=== PATIENT | male | born 1965 ===

== ENCOUNTER → 2019-02-03 | Outpatient (CLI) | payer SELFPAY ==
--- NOTE | 2019-02-03 10:49 | Diagnostic Imaging Report ---
EXAMINATION: Magnetic resonance imaging of the right shoulder without contrast. DATE: February 03, 2019. COMPARISON: None. HISTORY: 53-year-old male, right shoulder pain. TECHNIQUE: Magnetic Resonance Imaging sequences were performed of the shoulder without contrast. FINDINGS: ROTATOR CUFF, LIGAMENTS, TENDONS, AND MUSCLES: There is infraspinatus tendinopathy. The supraspinatus and teres minor tendons are intact. There is mild subscapularis tendinopathy. There is normal rotator cuff muscle bulk and signal. LONG HEAD OF BICEPS: The biceps labral attachment and long head of the biceps tendon is intact. The long head of the biceps tendon is normally positioned within the bicipital groove. GLENOHUMERAL JOINT: The humeral head is mildly posteriorly subluxed. There is a tear involving the posterior labrum most likely involving its entire length. There is extension of the labral tear to the inferior labrum. There is a multiloculated paralabral cyst adjacent to the inferior labrum measuring approximately 12 x 4 x 3 mm in size. This is best illustrated on axial PD fat saturation sequence image 21. There are also small paralabral cysts adjacent to the posterior inferior labrum measuring approximately 3 x 3 x 3 mm in size, on axial PD fat saturation sequence image 19 and adjacent to the mid posterior labrum measuring 2 x 3 mm in size on axial PD fat saturation sequence image 15. There are subchondral cysts along the posterior and inferior glenoid. There is near full-thickness cartilage loss of the posterior glenoid and adjacent humeral head cartilage thinning. There is no glenohumeral joint effusion. ACROMIOCLAVICULAR JOINT: The acromioclavicular joint is normally aligned. The coracoclavicular and coracoacromial ligaments are intact. There are moderate acromioclavicular degenerative changes with osteophytes extending approximately 4 mm below the expected joint margin. BONE: There is no os acromiale. There is mild degenerative related marrow change adjacent to the acromioclavicular joint. There is no acute fracture, bone contusion, or evidence of osteonecrosis. BURSAE AND SOFT TISSUES: The bursae and soft tissue surrounding the shoulder are unremarkable. IMPRESSION: 1. Infraspinatus and mild subscapularis tendinopathy. Negative for rotator cuff tendon tear. 2. Moderate acromioclavicular degenerative changes with 4 mm undersurface osteophytes. 3. Tear along the entire length of the posterior labrum extending to the inferior labrum with a parameniscal cyst adjacent to the inferior labrum, posterior inferior labrum, and mid posterior labrum. 4. Moderate to severe glenohumeral arthritis predominantly involving the posterior glenoid cartilage and adjacent humeral head. No glenohumeral joint effusion. 5. No acute fracture, bone contusion, or evidence of osteonecrosis. Dictated by: Dictated on workstation # [id number]
== END ==
LOC: RAD 09:24
PROVIDERS: ATTEND Nurse Practitioner Family
DX: S43.401A Unspecified sprain of right shoulder joint, initial encounter (principal); M67.813 Other specified disorders of tendon, right shoulder; M19.011 Primary osteoarthritis, right shoulder; M25.711 Osteophyte, right shoulder
CPT/HCPCS: 73221